=== PATIENT | male | born 1955 | race Caucasian/White ===

== ENCOUNTER 2016-08-26 19:50 | Observation (INO) ==
[2016-08-26] MEDS ORDERED: 0.9 % Sodium Chloride 1,000 ML IVC ONE (20:30)
[2016-08-26] MEDS ORDERED: Ondansetron 4 MG/2 ML VIAL IVP ONE (20:35)
[2016-08-26] MEDS ORDERED: *HR* HYDROmorphone (PF) 1 MG/ML SYRINGE IVP ONE (20:36)
[2016-08-26 20:45] LABS: Bilirubin,Urine Negative (Negative); Blood,Urine Large (Negative); Clarity,Urine Clear (Clear); Color,Urine Yellow (Yellow); Glucose,Urine (UA) >=1000 mg/dL (Normal); Ketones,Urine Negative (Negative); Leukocyte Esterase,Urine Negative (Negative); Nitrite,Urine Negative (Negative); Protein,Urine Negative (Neg-Trace); Specific Gravity,Urine 1.028 (1.010-1.025); Urobilinogen,Urine Normal (Normal)
[2016-08-26] MEDS ORDERED: Ketorolac 15 MG/ML VIAL IVP ONE (20:46)
[2016-08-26 20:48] LABS: Bacteria,Urine None Seen per hpf (None-Few); Hyaline Casts,Urine None Seen per lpf (None-Few); RBC,Urine 50-100 per hpf (0-3); Squamous Epithelial Cell,Urine Few per lpf (None-Few)
--- NOTE | 2016-08-26 20:55 | Emergency Department Note ---
Disposition Clinical Impression: Calculus of kidney, Renal insufficiency Hydronephrosis Qualifiers: Hydronephrosis type: with renal calculous obstruction Qualified Code(s): N13.2 - Hydronephrosis with renal and ureteral calculous obstruction Disposition: Admitted As Inpatient Condition: Good Referrals: NO,PCP [Primary Care Provider] - Forms: Work/School Release, ED Satisfaction Letter Time of Disposition: 21:29 Abdominal Pain HPI - General Chief Complaint: ED Abdominal Pain Stated Complaint: states has kidney stones Time Seen by Provider: 08/26/16 20:18 Source: patient Mode of arrival: ambulatory Limitations: no limitations Nursing Notes Reviewed: Yes Vital Signs Reviewed: Yes - History of Present Illness HPI Narrative: Patient presents to the ED with chief complaint of flank pain. Patient reports that he has a history of kidney stones and passes them almost weekly. He sees Dr. Navarro. He has been admitted previously for obstructions. States she has had pain off and on for the last couple of weeks. He had some hematuria over the last few days and resolved but returned yesterday. He said very sharp, stabbing, pressure in his left flank radiating around to his left lower quadrant. Also having some right flank pain but is significantly less than the left. It seems to be worse with heavy lifting and states that if he turns funny that the next day. He will usually get hematuria and then passed a stone. Has not had any recent imaging. Associated with nausea but no vomiting. No fever. Has had some decreased urination despite increased by mouth intake. He took some Dilaudid at home last night, which seemed to help, but has not helped today. He reports that he has had several lithotripsies previously. Has history of coronary artery disease and diabetes as well as hypertension has been compliant with his medications. He has no other complaints. Pt Subjective Complaint: abdominal pain Onset (ago): day(s) (3) Pain Scale: 10 - Related Data Allergies Allergy/AdvReac Type Severity Reaction Status Date / Time Diclofenac [From Voltaren] Allergy Swelling Verified 08/26/16 20:12 of Lip/Tongue/Throat morphine AdvReac Hallucinati Verified 08/26/16 20:12 ng All systems ED: reviewed and negative except as stated. Gastrointestinal: Reports: abdominal pain (flank pain), nausea Genitourinary: Reports: dysuria, hematuria. Denies: testicular pain Musculoskeletal: Reports: back pain (flank) Integumentary: Denies: rash Neurological: Denies: headache Abdominal Pain PMH - Past Medical History Medical history: Reports: COPD, diabetes, kidney stones Male Surgical History: Reports: other Psychiatric history: Reports: no psych history - Social History Smoking status: Never smoker Alcohol use: Reports: none Drug use: Reports: none Physical Exam - General Limitations: no limitations General appearance: alert, in no apparent distress (but does appear to be in pain) - Head Head exam: atraumatic, normocephalic, normal inspection - ENT ENT exam: mucous membranes dry - Respiratory Respiratory exam: Present: normal lung sounds bilaterally - Cardiovascular Cardiovascular exam: Present: regular rate, normal rhythm, normal heart sounds - Abdominal Exam Abdominal exam: Present: soft, Non-Tender, distention (but obese, states baseline), diminished bowel sounds. Absent: guarding, rebound - Male exam: Present: other (deferred) - Extremities Exam Extremities exam: Present: normal inspection, full ROM. Absent: tenderness, pedal edema - Back Exam Back exam: Present: CVA tenderness (R) (mild), CVA tenderness (L) (moderate) - Neurological Exam Neurological exam: Present: alert, oriented X3 - Psychiatric Psychiatric exam: Present: normal affect, normal mood - Skin Skin exam: Present: warm, dry, intact, normal color Course Course Narrative: 61-year-old male presenting with left flank pain. History of multiple stones. States that this is his normal presentation, but this is slightly worse. Considering the pain is radiating to his left lower quadrant this time. Said decreased urination despite increased by mouth intake. Hematuria. No fever. No testicular pain. We will get a urinalysis, BMP, noncontrasted CT as well as treat his pain. Patient has taken Toradol before and seems to help. Also taken dilaudid which works well for his pain, so we will give him Toradol, Dilaudid and a liter of fluid. Disposition pending CT results. - Consultations Consultation #1: Spoke with Dr. Navarro with urology. Did recommend admission and will likely need a stent tomorrow afternoon. Patient's pain is fairly well under control currently. Patient does have some renal insufficiency which is in between his baseline and highest value. No further toradol will be given due to renal function. Will titrate dilaudid for pain. Continue IVF. Admit to Urology. Time: 21:25 Vital Signs Temperature 97.9 F 08/26/16 20:09 Pulse Rate 94 08/26/16 20:09 Respiratory Rate 20 08/26/16 20:09 Blood Pressure 143/94 08/26/16 20:09 O2 Sat by Pulse Oximetry 98 08/26/16 20:09 Temperature 97.9 F 08/26/16 20:09 Pulse Rate 106 08/26/16 21:24 Respiratory Rate 16 08/26/16 21:24 Blood Pressure 160/94 08/26/16 21:24 O2 Sat by Pulse Oximetry 93 08/26/16 21:24 Oxygen Delivery Oxygen Delivery Room Air Abdominal Pain - Lab Data Result diagrams: 08/26/16 20:39 Lab Results 08/26/16 08/26/16 Range/Units 20:17 20:39 Sodium 135 L (136-145) mEq/L Potassium 4.3 (3.5-4.5) mEq/L Chloride 100 (98-109) mEq/L Carbon Dioxide 19 (19-29) mEq/L BUN 23 (8-26) mg/dL Creatinine 2.02 H (0.72-1.25) mg/dL Est GFR ( Amer) 41 L (> 60) Est GFR (Non-Af Amer) 34 L (> 60) BUN/Creatinine Ratio 11 (6-26) Glucose 445 H (70-99) mg/dL Calculated Osmolality 303 H (280-300) Calcium 9.8 (8.6-10.8) mg/dL Urine Color Yellow (Yellow) Urine Clarity Clear (Clear) Urine pH 6.0 (5.0-8.0) pH Units Ur Specific Dougherty 1.028 H (1.010-1.025) Urine Protein Negative (Neg-Trace) mg/dL Urine Glucose (UA) >=1000 H (Normal) mg/dL Urine Ketones Negative (Negative) mg/dL Urine Blood Large H (Negative) Urine Nitrite Negative (Negative) Urine Bilirubin Negative (Negative) Urine Urobilinogen Normal (Normal) mg/dL Ur Leukocyte Esterase Negative (Negative) Urine Microscopic RBC 50-100 H (0-3) per hpf Urine Microscopic WBC 5-15 H (0-3) per hpf Ur Squamous Epith Cells Few (None-Few) per lpf Urine Bacteria None Seen (None-Few) per hpf Hyaline Casts None Seen (None-Few) per lpf Ur Culture Indicated? YES A (NO) Lulu - Lulu Situation: Demographics, MOA Background: Presenting Complaint, Relevant PMH, Meds, & Allergies Assessment: Vital Signs, Course and respsone to treatment, Exam Concerns, Patient/Family Expectation, Pertinant Lab Results, Outstanding Labs Recommendation: Recommendation based on pending studies, treatments, or consults SRae Report Given to: Dr. Ramon Lawson Repor Time: 21:29 Attestation Statement - Attestation Attestation: I, Meng Song MD, personally performed a history and physical exam of the patient and discussed their management with the resident. I reviewed the resident's note and agree with the documented findings, medical decision making , and plan of care. 61-year-old male with history of multiple kidney stones presents to the emergency department with a complaint of severe left flank pain which started 1 day prior to arrival. The pain radiates to the left groin area. There has been some mild gross hematuria. Some nausea but no vomiting. No fever. On examination patient is a well-developed obese male in no acute distress. He is alert and oriented 3. There is no cyanosis or diaphoresis. Breath sounds are clear and equal bilaterally. Heart regular rate and rhythm. Abdomen soft and nontender with normal bowel sounds. Labs reviewed. CT of the abdomen and pelvis shows a 9 mm stone in the proximal left ureter with moderate to severe left hydronephrosis. The urologist monorail car operator, Dr. Navarro, was consulted and accepted admission of the patient to his service. This is his regular patient.
[2016-08-26 20:58] LABS: Calcium 9.8 mg/dL (8.6-10.8); Potassium 4.3 mEq/L (3.5-4.5)
--- NOTE | 2016-08-26 21:48 | Urology History & Physical ---
Date of Encounter: 08/26/16 Time of Encounter: 21:45 Assessment and Plan (1) Acute renal insufficiency Current Visit: Yes Status: Acute Should improve with IV hydration and stent (2) Ureteral stone with hydronephrosis Current Visit: Yes Status: Acute Proceed with cystoscopy, retrograde pyelogram and stent placement. History of Present Illness Chief complaint: Flank pain HPI: Mr. Perea is a 61 year old male long history of urolithiasis. Presents with severe left flank pain. 7 millimeter proximal ureteral stone with severe hydronephrosis. Creatinine 2.0. Glucose 445. Patient admitted for further evaluation Past Med Surg Social Fam HX - Past Medical History Medical history: COPD, diabetes, kidney stones Psychiatric history: no psych history - Social History Smoking Status: Never smoker Alcohol use: none Drug use: none Medications and Allergies Allergies Diclofenac [From Voltaren] Allergy (Verified 08/26/16 20:12) Swelling of Lip/Tongue/Throat morphine Adverse Reaction (Verified 08/26/16 20:12) Hallucinating Review of Systems - Constitutional no chills, no fever(s) - EENT Nose, mouth and throat: no dizziness - Cardiovascular no chest pain - Respiratory no cough - Gastrointestinal abdominal pain - Genitourinary flank pain - Musculoskeletal back pain - Integumentary no erythema - Neurological no confusion - Psychiatric no anxiety - Hematologic/Lymphatic no easy bleeding - Allergic/Immunologic no throat swelling Exam Initial Vital Signs Temp Pulse Resp BP Pulse Ox 97.9 F 94 20 143/94 98 08/26/16 20:09 08/26/16 20:09 08/26/16 20:09 08/26/16 20:09 08/26/16 20:09 - General physical appearance Present: well developed, no distress - Eyes Present: PERRL - ENT Present: normal nares - Neck Present: no masses - Respiratory Present: normal respiratory effort - Abdomen Abdomen: Present: soft (CVA tenderness) - Integumentary Present: no rash - Neurologic Present: normal coordination. Absent: disoriented, confused - Musculoskeletal Present: normal gait Urology Results - Labs 08/26/16 20:39 Abnormal lab results Sodium 135 mEq/L (136-145) L 08/26/16 20:39 Creatinine 2.02 mg/dL (0.72-1.25) H 08/26/16 20:39 Est GFR ( Amer) 41 (> 60) L 08/26/16 20:39 Est GFR (Non-Af Amer) 34 (> 60) L 08/26/16 20:39 Glucose 445 mg/dL (70-99) H 08/26/16 20:39 Calculated Osmolality 303 (280-300) H 08/26/16 20:39 Ur Specific Banks 1.028 (1.010-1.025) H 08/26/16 20:17 Urine Glucose (UA) >=1000 mg/dL (Normal) H 08/26/16 20:17 Urine Blood Large (Negative) H 08/26/16 20:17 Urine Microscopic RBC 50-100 per hpf (0-3) H 08/26/16 20:17 Urine Microscopic WBC 5-15 per hpf (0-3) H 08/26/16 20:17 Ur Culture Indicated? YES (NO) A 08/26/16 20:17 Diabetes panel 08/26/16 Range/Units 20:39 Sodium 135 L (136-145) mEq/L Potassium 4.3 (3.5-4.5) mEq/L Chloride 100 (98-109) mEq/L Carbon Dioxide 19 (19-29) mEq/L BUN 23 (8-26) mg/dL Creatinine 2.02 H (0.72-1.25) mg/dL Glucose 445 H (70-99) mg/dL Calcium 9.8 (8.6-10.8) mg/dL Calcium panel 08/26/16 Range/Units 20:39 Calcium 9.8 (8.6-10.8) mg/dL Pituitary panel 08/26/16 Range/Units 20:39 Sodium 135 L (136-145) mEq/L Potassium 4.3 (3.5-4.5) mEq/L Chloride 100 (98-109) mEq/L Carbon Dioxide 19 (19-29) mEq/L BUN 23 (8-26) mg/dL Creatinine 2.02 H (0.72-1.25) mg/dL Glucose 445 H (70-99) mg/dL Calcium 9.8 (8.6-10.8) mg/dL Adrenal panel 08/26/16 Range/Units 20:39 Sodium 135 L (136-145) mEq/L Potassium 4.3 (3.5-4.5) mEq/L Chloride 100 (98-109) mEq/L Carbon Dioxide 19 (19-29) mEq/L BUN 23 (8-26) mg/dL Creatinine 2.02 H (0.72-1.25) mg/dL Glucose 445 H (70-99) mg/dL Calcium 9.8 (8.6-10.8) mg/dL All other labs normal.
[2016-08-26] MEDS ORDERED: *HR* OxyCODONE Immed Rel 5 MG TABLET PO PRN (21:49)
[2016-08-26] MEDS ORDERED: Naloxone 0.4 MG/ML INJ IVP PRN (21:49)
[2016-08-26] MEDS ORDERED: Ondansetron 4 MG/2 ML VIAL IVP PRN (21:49)
[2016-08-26] MEDS ORDERED: *HR* Promethazine 25 MG/ML VIAL IVP PRN (21:49)
[2016-08-26] MEDS ORDERED: Dextrose Gel 15 GM PO PRN ×2 (21:53)
[2016-08-26] MEDS ORDERED: *HR* Dextrose 50 % in Water (Syg) 50 ML SYRINGE IVP PRN (21:53)
[2016-08-26] MEDS ORDERED: D5% in Water 1,000 ML IVC PRN (21:53)
[2016-08-27] MEDS: 0.9 % Sodium Chloride 1,000 ML IVC SCH ×3 (00:16→22:05)
[2016-08-27] MEDS: Insulin LISPRO 300 UNITS/3 ML VIAL SQ SCH ×3 (00:49→15:28)
[2016-08-27] MEDS: *HR* HYDROmorphone (PF) 1 MG/ML SYRINGE IVP PRN ×4 (05:56→15:11)
--- NOTE | 2016-08-27 17:33 | Anesthesia Evaluation PreOp ---
Date of Encounter: 08/27/16 Time of Encounter: 17:31 - Past History Planned Operation: Cysto L-ureteroscopic stent placement Cardiac History: Denies any Significant Hx, [place] (x2, last one in 2006. NO interventions - medical mgmt only. Previously on ASA but taken off several years ago.), HTN (maintainedon Norvasc, Hctz), Hyperlipidemia (maintained on Atorvastatin) Pulmonary History: COPD (Pt reportedly dx w/ Silicosis, Black Lung & mild Emphysema - But "inhalers didn't do anything"), OMER Dx (+ CPAP use), Other DESKTOP SUPPORT CONSULTANT History: Denies Any Significant HX Other Medical History: Renal (ENEDINA. Ureteral stone w/hydronephrosis), Diabetes Type II (UNCONTROLLED - Hx of HbA1c>10. Maintained on Amaryl, Trulicity, Humalog , Metformin), GERD (maintained on Prevacid) Anesthesia History: No Prior Anesthetic Complications, Past Anesthesia (Pinky, Thyroid Bx, Appy, Hernia repair, Lithotripsy, Eye surgery) Alcohol Use: none Drug use: none Medications and Allergies Amlodipine 08/26/16 [History] Atorvastatin [Lipitor] 40 mg PO HS 08/26/16 [History] Dulaglutide [Trulicity] 0.75 mg SQ REEVES 08/26/16 [History] Glimepiride [Amaryl] 4 mg PO BID 08/26/16 [History] Hydrochlorothiazide 12.5 mg PO DAILY 08/26/16 [History] Insulin Lispro Protamin/Lispro [Humalog Mix 75-25 Vial] 40 unit SQ BID 08/26/16 [History] Metformin HCl [Glucophage] 1,000 mg PO DAILY 08/26/16 [History] Potassium Citrate [Urocit-K] 20 meq PO BID 08/26/16 [History] Prevacid 08/26/16 [History] Allergies Diclofenac [From Voltaren] Allergy (Verified 08/26/16 20:12) Swelling of Lip/Tongue/Throat morphine Adverse Reaction (Verified 08/26/16 20:12) Hallucinating - Meds/Allergy Pre-op Review Medications Reviewed: Yes Allergies Reviewed: Yes Beta Blockers on Current Med List: No Anesthesia Results - Labs 08/26/16 20:39 Laboratory Tests 08/26/16 08/27/16 20:39 11:49 PT INR PTT Creatinine 2.02 H Est GFR (Non-Af Amer) 34 L Glucose 445 H POC Glucose 285 H Laboratory Results Impressions Abdomen/Pelvis CT 08/26/16 20:32 IMPRESSION: 7 mm stone causing moderate to severe hydronephrosis on the left. D/ / Gadiel Rueda MD / Gadiel Rueda MD Interpreting Provider: Gadiel Rueda MD - Imaging EKG: image reviewed (97bpm SR, LAFB) Anesthesia Exam Vital Signs Temp Pulse Resp BP Pulse Ox 08/27/16 08:20 93 08/27/16 04:16 98.1 F 82 14 150/91 93 08/27/16 00:01 92 08/26/16 22:47 98.5 F 92 14 135/88 92 08/26/16 22:29 98 F 16 154/90 08/26/16 21:24 106 16 160/94 93 08/26/16 20:09 97.9 F 94 20 143/94 98 Intake and Output 08/27/16 08/27/16 08/27/16 07:59 15:59 23:59 Intake Total 0 / 0 1100 / 1100 Output Total 375 / 375 225 / 225 Balance -375 / -375 875 / 875 Intake: IV Fluids 1100 / 1100 0.9 % Sodium Chloride 1, 1000 / 1000 000 ML @ 125 mls/hr IVC . Q8H JADA Rx#:[id number] Rocephin 1,000 MG In 100 / 100 Dextrose 5% (Minibag+) 100 ML 100 ML @ 200 mls/ hr IVPB DAILY JADA Rx#: [id number] Oral 0 / 0 Output: Urine 375 / 375 225 / 225 Other: Meal NPO Blood Glucose* 278 248 - HEENT Pupil (Motor): Pupils equal, EOMI Mallampati: III Teeth: Missing, Poor dentition (loose bottom front wiggly tooth) Oral Opening: Greater than 3 - DESKTOP SUPPORT CONSULTANT LOC: Oriented DESKTOP SUPPORT CONSULTANT Motor: Normal RUE, Normal LUE, Normal RLE, Normal LLE, Normal Face DESKTOP SUPPORT CONSULTANT Sensory: Normal: RUE, LUE, RLE, LLE, Face - Cardiac Rhythm: Regular Murmur: None JVD: No - Pulmonary Breath Sounds: bilateral Clear Respiratory Effort: Symmetrical Anesthesia Assess/Plan ASA Score: 3 (Uncontrolled DM, HTN, MO,) Modified Marii Scale for Level of Consciousness: Cooperative, oriented, and tranquil Anesthetic Plan: General Monitoring Plan: Standard Monitors Recovery Plan: PACU Anes Supervising Prov Stmt: Pt seen/evaluated, R&B discussed, questions answered and consent obtained. Sunny Gage MD
[2016-08-27] MEDS ORDERED: Metoclopramide 10 MG/2 ML VIAL ONE (18:28)
[2016-08-27] MEDS ORDERED: Famotidine 20 MG/2 ML VIAL ONE (18:28)
[2016-08-27] MEDS ORDERED: Acetaminophen IV 1,000 MG/100 ML INFUS..BTL ONE (18:29)
[2016-08-27] MEDS ORDERED: *HR* Midazolam HCl 2 MG/2 ML VIAL ONE (18:44)
[2016-08-27] MEDS ORDERED: *HR* FentaNYL (PF) 100 MCG/2 ML VIAL ONE (18:44)
[2016-08-27] MEDS ORDERED: *HR* Propofol 200 MG/20 ML VIAL IVP ONE (18:44)
--- NOTE | 2016-08-27 18:53 | Discharge Summary ---
Date of Encounter: 08/27/16 Time of Encounter: 18:50 - Discharge Diagnosis (1) Acute renal insufficiency Priority: Secondary Status: Acute (2) Ureteral stone with hydronephrosis Priority: Primary Status: Resolved - Discharge Medications Prescriptions: Oxycodone HCl/Acetaminophen [Percocet 5-325 mg Tablet] 1 each PO Q4H PRN #20 tablet PRN Reason: Pain Home Medications: Amlodipine 08/26/16 [History] Atorvastatin [Lipitor] 40 mg PO HS 08/26/16 [History] Dulaglutide [Trulicity] 0.75 mg SQ REEVES 08/26/16 [History] Glimepiride [Amaryl] 4 mg PO BID 08/26/16 [History] Hydrochlorothiazide 12.5 mg PO DAILY 08/26/16 [History] Insulin Lispro Protamin/Lispro [Humalog Mix 75-25 Vial] 40 unit SQ BID 08/26/16 [History] Metformin HCl [Glucophage] 1,000 mg PO DAILY 08/26/16 [History] Potassium Citrate [Urocit-K] 20 meq PO BID 08/26/16 [History] Prevacid 08/26/16 [History] Oxycodone HCl/Acetaminophen [Percocet 5-325 mg Tablet] 1 each PO Q4H PRN #20 tablet 08/27/16 [Rx] Allergies/Adverse Reactions: Allergies Diclofenac [From Voltaren] Allergy (Verified 08/26/16 20:12) Swelling of Lip/Tongue/Throat morphine Adverse Reaction (Verified 08/26/16 20:12) Hallucinating Labs on day of discharge: Labs from last 24 hours 08/27/16 08/27/16 08/27/16 11:49 05:43 00:41 POC Glucose 285 H 278 H 365 H 08/26/16 22:25 POC Glucose 352 H Date of admission: 08/26/16 21:52 Primary care physician: PCP ELLY Discharging clinician: Keenan Navarro Anticipated date of discharge: 08/28/16 - Patient Status Disposition: Home, Self-Care Functional capacity at discharge: independent ambulation Overall status at discharge: patient is progressing back to baseline - Discharge Instructions Follow Up With: NO,PCP [Primary Care Provider] - Keenan Navarro MD [Partnered Physician] - (My office will call to schedule stone procedure) Additional Instructions: Expect stent discomfort including urgency, frequency, burning on urination, blood in the urine. This is normal. Call if symptoms are excessive or fever over 101 My office will call to schedule outpatient stone procedure - Diet and Activity Activity: increase activity as tolerated Diet: diabetic diet - Hospital Course Hospital course: Mr. Perea is a 61 year old male admitted with a proximal ureteral calculi and acute renal insufficiency. Stent placed on 08/27. Plan to discharge when pain controlled and improvement in renal insufficiency. Will require outpatient stone management - Time Spent with Patient Total time spent providing and/or coordinating discharge services: Less than 30 minutes Exam Initial Vital Signs Temp Pulse Resp BP Pulse Ox 97.9 F 94 20 143/94 98 08/26/16 20:09 08/26/16 20:09 08/26/16 20:09 08/26/16 20:09 08/26/16 20:09 - General physical appearance Present: well developed, no distress
[2016-08-27] MEDS ORDERED: Lidocaine -MPF 2% 2 ML VIAL ONE (19:01)
[2016-08-27] MEDS ORDERED: Ondansetron 4 MG/2 ML VIAL ONE (19:17)
--- NOTE | 2016-08-27 20:09 | Anesthesia Evaluation Post Op ---
Date of Encounter: 08/27/16 Time of Encounter: 20:08 - Vital Signs Vital Signs: Vital Signs/O2 Sat/Glucose, Most Current Temp Pulse Resp BP Pulse Ox 08/27/16 20:00 97.2 F L 89 18 142/93 95 08/27/16 19:50 95 18 153/97 94 08/27/16 19:40 97 20 140/96 94 08/27/16 19:30 97.7 F 95 20 140/96 97 - Lungs Lungs: Clear Ascult./Percussion - Airway Airway: Non-obstructed - Cardiovascular Regular Rate - Mental Status Mental Status: Alert & Oriented, Answers Appropriately - Pain Pain Scale: 0 - Nausea Vomiting Nausea Vomiting: Not Present - Hydration Hydration: Ice chips - Discharge PostOp Status: Transfer Patient to floor
[2016-08-27] MEDS ORDERED: Naloxone 0.4 MG/ML INJ IVP PRN (20:33)
[2016-08-27] MEDS ORDERED: Dextrose Gel 15 GM PO PRN ×2 (20:33)
[2016-08-27] MEDS ORDERED: *HR* OxyCODONE Immed Rel 5 MG TABLET PO PRN (20:33)
[2016-08-27] MEDS ORDERED: *HR* Dextrose 50 % in Water (Syg) 50 ML SYRINGE IVP PRN (20:33)
[2016-08-27] MEDS ORDERED: *HR* Promethazine 25 MG/ML VIAL IVP PRN (20:33)
[2016-08-27] MEDS ORDERED: Ondansetron 4 MG/2 ML VIAL IVP PRN (20:33)
[2016-08-27] MEDS ORDERED: *HR* HYDROmorphone (PF) 1 MG/ML SYRINGE IVP PRN (20:33)
[2016-08-27] MEDS ORDERED: D5% in Water 1,000 ML IVC PRN (20:33)
[2016-08-27] MEDS ORDERED: *HR* Glimepiride 4 MG TABLET PO SCH (21:00)
[2016-08-27] MEDS: Potassium Citrate 10 MEQ TABLET.ER PO SCH (23:16)
[2016-08-28] MEDS: Insulin LISPRO 300 UNITS/3 ML VIAL SQ SCH ×2 (01:03→05:37)
[2016-08-28] MEDS: 0.9 % Sodium Chloride 1,000 ML IVC SCH (05:37)
[2016-08-28 06:53] LABS: BUN/Creatinine Ratio 14 (6-26); Blood Urea Nitrogen 16 mg/dL (8-26); Calcium 8.6 mg/dL (8.6-10.8); Carbon Dioxide 23 mEq/L (19-29); Chloride 107 mEq/L (98-109); Glucose 241 mg/dL (70-99); Osmolality,Calculated 293 (280-300); Potassium 3.9 mEq/L (3.5-4.5); Sodium 137 mEq/L (136-145); eGFR For African Americans > 60 (> 60); eGFR For Non-African Americans > 60 (> 60)
--- NOTE | 2016-08-28 06:58 | Urology Progress Note ---
Date of Encounter: 08/28/16 Time of Encounter: 06:57 - Assessment and Plan (1) Acute renal insufficiency Current Visit: Yes Status: Acute Assessment and plan: BMP pending. discharge if improvement. (2) Ureteral stone with hydronephrosis Current Visit: Yes Status: Resolved Assessment and plan: stent placed Progress Note Subjective: feels better Narrative: urinating " a lot" Objective Initial Vital Signs Temp Pulse Resp BP Pulse Ox 97.9 F 94 20 143/94 98 08/26/16 20:09 08/26/16 20:09 08/26/16 20:09 08/26/16 20:09 08/26/16 20:09 - General physical appearance Present: well developed, no distress - Labs 08/26/16 20:39 Consult Discharge Plan - Plan Additional Instructions: Expect stent discomfort including urgency, frequency, burning on urination, blood in the urine. This is normal. Call if symptoms are excessive or fever over 101 My office will call to schedule outpatient stone procedure Referrals: NO,PCP [Primary Care Provider] - Keenan Navarro MD [Partnered Physician] - (My office will call to schedule stone procedure) Prescriptions: Oxycodone HCl/Acetaminophen [Percocet 5-325 mg Tablet] 1 each PO Q4H PRN #20 tablet PRN Reason: Pain
--- NOTE | 2016-08-28 07:01 | Operative Note ---
Date of procedure: 08/28/16 Pre-op diagnosis: left ureteral stone and renal insufficiency Post-op diagnosis: same Procedure: left retrograde pyelogram and JJ stent placement. Anesthesia: GETA Surgeon: Keenan Navarro Estimated blood loss (cc): 0 Specimen: none Condition: stable Disposition: PACU Procedure in Detail: PROCEDURE IN DETAIL: Patient was taken back to the operating room, positioned supine on the operating table. Anesthesia was applied without complication. They were moved into dorsal lithotomy. Careful attention was maintained to cushion all pressure points for patient's safety. They were prepped and draped in sterile fashion. Time-out was performed with the proper patient and procedure. A 21-[place] rigid cystoscope was inserted into the bladder without difficulty. Systematic examination of bladder revealed no abnormalities. The ureteral orifice was cannulated using a 5-[place] ureteral Catheter and a retrograde pyelogram was performed using Isovue. A filling defect was identified which corresponded to the stone. At that point, a zip wire was placed through the 5-[place] and confirmed in the renal pelvis with fluoroscopy. A 4.8 x 26 ureteral stent was placed over the zip wire under fluoroscopy without complication. The bladder was drained.
[2016-08-28] MEDS: Potassium Citrate 10 MEQ TABLET.ER PO SCH (08:42)
[2016-08-28] MEDS ORDERED: hydroCHLOROthiazide 25 MG TABLET PO SCH (09:00)
--- NOTE | 2016-08-28 11:38 | Electrocardiograph Report ---
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
[2016-08-28 15:42] VITALS: BP 106/48
== END 2016-08-28 10:41 | disposition home or self-care (01) ==
LOC: EMEROO 19:50 → 3ANU 19:50
PROVIDERS: ADMIT Urology; ATTEND Urology